=== PATIENT | male | born 1980 | race Caucasian/White ===

== ENCOUNTER → 2019-08-23 | Outpatient (CLI) | payer BC ==
[~2019-08-23] MED LIST: CYCL10TA9 PO; MULTI VITAMINS PO; NAPR-689 PO; PRED20TA PO
--- NOTE | 2019-08-23 09:34 | Diagnostic Imaging Report ---
INDICATION: Lower right anterior rib pain. TIME OF EXAM: 9:23 AM FINDINGS: Multiple views of right ribs were obtained. No displaced rib fracture is seen. No parenchymal contusion, effusion or pneumothorax is seen. IMPRESSION: No acute abnormality is detected. Dictated by: Dictated on workstation # [id number]
== END ==
LOC: RAD 09:06
PROVIDERS: ATTEND Nurse Practitioner Family
DX: R07.81 Pleurodynia (principal)
CPT/HCPCS: 71100

== ENCOUNTER 2020-08-04 10:41 | Outpatient (RCR) | payer BC ==
[~2020-08-04] VITALS: Ht 182 cm; Wt 65.9 kg
[~2020-08-04 10:41] MED LIST changes: +MULT-1136 PO
== END 2020-08-04 10:42 | disposition home or self-care (01) ==
LOC: PREOP 10:41
PROVIDERS: ATTEND Internal Medicine
DX: Z01.818 Encounter for other preprocedural examination (principal)

== ENCOUNTER 2020-08-08 07:39 | Day surgery (SDC) | payer BC ==
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
[~2020-08-08] VITALS: Ht 182 cm; Wt 66.0 kg
[2020-08-08] MEDS ORDERED: LACTATED RINGERS 1,000 ML IV ONE (07:41)
--- NOTE | 2020-08-08 07:48 | Pre-Op Note & Conscious Sedat ---
Pre-Operative Progress Note H&P Reviewed The H&P was reviewed, patient examined and no changes noted. Date H&P Reviewed: Aug 08, 2020 Time H&P Reviewed: 07:47 Conscious Sedation Pre-Proced ASA Score 2 For ASA 3 and 4: Consider anesthesia and medical clearance. Also, for patients with a history of failed moderate sedation consider anesthesia. Airway Lungs Heart ASA score ASA 1: a normal healthy patient ASA 2: a patient with a mild systemic disease (mid diabetes, controlled hypertension, obesity ASA 3: a patient with a severe systemic disease that limits activity (angina, COPD, prior Myocardial infarction) ASA 4: a patient with an incapacitating disease that is a constant threat to life (CHF, renal failure) ASA 5: a moribund patient not expected to survive 24 hrs. (ruptured aneurysm) ASA 6: a declared brain- patient whose organs are being harvested. For emergent operations, add the letter E after the classification Mallampati Classification Grade 2 Sedation Plan Analgesia, Amnesia, Plan communicated to team members, Discussed options with patient/fam, Discussed risks with patient/fam The patient is an appropriate candidate to undergo the planned procedure, sedation, and anesthesia. The patient immediately re-assessed prior to indication. XIN BRUNNER MD Aug 08, 2020 07:48
[2020-08-08 07:50] VITALS: BP 117/83
[2020-08-08] MEDS ORDERED: LACTATED RINGERS 1,000 ML IV STA (07:57)
[2020-08-08] MEDS ORDERED: LIDOCAINE JELLY 2% 6 ML SYRINGE MM PRN (08:00)
[2020-08-08] MEDS ORDERED: proPOfol 200 MG/20 ML (DIPRIVAN) VIAL IV ONE (09:19)
[2020-08-08] MEDS ORDERED: MIDAZOLAM 2 MG/2 ML (VERSED) VIAL ONE (09:19)
[2020-08-08 10:00] VITALS: BP 100/55
[2020-08-08 10:05] VITALS: BP_SYST 106; BP_SYST 107; BP_DIAS 60; BP_DIAS 61
[2020-08-08 10:30] VITALS: BP 111/70
[2020-08-08 10:37] VITALS: BP 111/70
--- NOTE | 2020-08-08 10:37 | Anesthesia-General Post-Op ---
MAC Patient Condition Mental Status/LOC: Same as Preop Cardiovascular: Satisfactory Nausea/Vomiting: Absent Respiratory: Satisfactory Pain: Controlled Complications: Absent Post Op Complications Complications None Follow Up Care/Instructions Patient Instructions None needed. Anesthesiology Discharge Order Discharge Order Patient is doing well, no complaints, stable vital signs, no apparent adverse anesthesia problems. MONAE LAUGHLIN DO Aug 08, 2020 10:37
--- NOTE | 2020-08-08 15:04 | OPERATIVE REPORT ---
DATE OF SERVICE: COLONOSCOPY SUMMARY INDICATION FOR THE PROCEDURE: Screening colonoscopy, family history of colon cancer. DESCRIPTION OF PROCEDURE: The patient was placed in the left lateral decubitus position. Prior to undergoing colonoscopy, digital rectal evaluation was performed. Anal sphincter tone was normal and the perianal reflexes intact. Prostate is normal size, anodular, nontender to digital inspection. No abnormalities were noted on digital inspection of anal canal or distal rectal vault. The colonoscope was inserted into the rectum and under direct visualization advanced to cecum. The cecum was identified by identification of the ileocecal valve and cecal strap. Photographic documentation was obtained. Careful inspection was made as colonoscope withdrawn. Quality of prep was fair. The patient did have a vagal response to initial failed IV attempts. He had a presyncopal event. Heart rate dropped in 40s with a systolic pressure of 80/30 supine. He recovered quickly and we were able to get an IV with no difficulty during the colonoscopy that followed. The patient was discharged with stable vital signs voicing no complaints. FINDINGS: The rectum, sigmoid colon, descending colon, transverse colon, ascending colon and cecum were unremarkable with no evidence for diverticular disease, neoplasia or other abnormality. ASSESSMENT: Normal colonoscopy to the cecum. Considering family history, we would advise consideration for repeat screening colonoscopy in 5 years. I thank you for the referral of this pleasant gentleman. Job ID: [id number] DocumentID: [id number] Dictated Date: 08/08/2020 10:20:31 Safe Deposit Clerk Date: 08/08/2020 15:03:00 Dictated By: XIN BRUNNER MD MTDD
== END 2020-08-08 10:39 | disposition home or self-care (01) ==
LOC: ENDO 07:39
PROVIDERS: ATTEND Internal Medicine
DX: Z12.11 Encounter for screening for malignant neoplasm of colon (principal); Z80.0 Family history of malignant neoplasm of digestive organs; Z88.8 Allergy status to other drugs, medicaments and biological substances; Z80.3 Family history of malignant neoplasm of breast; Z80.42 Family history of malignant neoplasm of prostate; Z80.51 Family history of malignant neoplasm of kidney

== ENCOUNTER 2022-08-19 17:41 | Emergency (ER) | payer BC ==
[~2022-08-19] VITALS: Ht 182.8 cm; Wt 70.3 kg
[2022-08-19 17:57] LABS: BASOPHILS # (AUTO) 0.1 10^3/uL (0.0-0.1); BASOPHILS % (AUTO) 1 % (0-10); EOSINOPHILS # (AUTO) 0.2 10^3/uL (0.0-0.3); EOSINOPHILS % (AUTO) 2 % (0-10); HEMATOCRIT 43 % (40-54); HEMOGLOBIN 14.8 g/dL (13.3-17.7); LYMPHOCYTES # (AUTO) 2.9 10^3/uL (1.0-4.0); LYMPHOCYTES % (AUTO) 36 % (12-44); MEAN CORPUSCULAR HEMOGLOBIN 33 pg (25-34); MEAN CORPUSCULAR HGB CONC 34 g/dL (32-36); MEAN CORPUSCULAR VOLUME 95 fL (80-99); MEAN PLATELET VOLUME 9.7 fL (9.0-12.2); MONOCYTES # (AUTO) 0.6 10^3/uL (0.0-1.0); MONOCYTES % (AUTO) 8 % (0-12); NEUTROPHILS # (AUTO) 4.1 10^3/uL (1.8-7.8); NEUTROPHILS % (AUTO) 53 % (42-75); PLATELET COUNT 209 10^3/uL (130-400); WHITE BLOOD COUNT 7.8 10^3/uL (4.3-11.0)
[2022-08-19] MEDS ORDERED: ASPIRIN 81 MG CHEW (CHILDREN'S ASA) PO ONE (18:00)
[2022-08-19 18:07] LABS: ALBUMIN 4.8 GM/DL (3.2-4.5); CHLORIDE 103 MMOL/L (98-107); POTASSIUM 4.1 MMOL/L (3.6-5.0); SODIUM 139 MMOL/L (135-145)
[2022-08-19 18:08] LABS: CALCIUM 9.9 MG/DL (8.5-10.1)
[2022-08-19 18:09] LABS: GLUCOSE 102 MG/DL (70-105); TOTAL PROTEIN 8.3 GM/DL (6.4-8.2)
[2022-08-19 18:10] LABS: CARBON DIOXIDE 27 MMOL/L (21-32)
[2022-08-19 18:11] LABS: BILIRUBIN,TOTAL 0.4 MG/DL (0.1-1.0)
[2022-08-19 18:13] LABS: ALKALINE PHOSPHATASE 57 U/L (40-136); CREATININE SERUM 0.85 MG/DL (0.60-1.30); GFR ESTIMATED 113
[2022-08-19 18:14] LABS: BUN/CREATININE RATIO 13
[2022-08-19 18:15] LABS: MAGNESIUM 2.2 MG/DL (1.6-2.4)
[2022-08-19 18:16] LABS: ALANINE AMINOTRANSFERASE 50 U/L (0-55)
[2022-08-19 18:19] LABS: INR 0.9 (0.8-1.4); PROTHROMBIN TIME PATIENT 12.3 SEC (12.2-14.7)
--- NOTE | 2022-08-19 18:28 | Diagnostic Imaging Report ---
EXAMINATION: Chest 1 view HISTORY: Chest pain COMPARISON: None available. FINDINGS: Heart size and pulmonary vasculature are normal. The lungs are clear without consolidation, pleural effusion, or pneumothorax. The osseous structures are intact. IMPRESSION: 1. No acute radiographic abnormality in the chest. Dictated by: Dictated on workstation # [id number]
[2022-08-19] MEDS ORDERED: LIDOCAINE 2% VISCOUS 15 ML UDC PO ONE (18:45)
[2022-08-19] MEDS ORDERED: ANTACID SUSP 30 ML UDC (MYLANTA) PO ONE (18:45)
[2022-08-19] MEDS ORDERED: SUCRALFATE 1 GM (CARAFATE) TAB PO ONE (18:45)
--- NOTE | 2022-08-19 18:45 | ED Chest Pain ---
General Chief Complaint: Chest Pain Stated Complaint: CHEST PRESSURE Nursing Triage Note: PT AMB TO RM 8 WITH CC OF CHEST PRESSURE SINCE LAST PM. PT SEEN AT [facility] EARLIER TODAY FOR SAME CONCERN AND SENT HERE. PT STATES HAS HAD THIS PRESSURE ON AND OFF FOR AWHILE NOW. PT DENIES SOA Source: patient Exam Limitations: no limitations History of Present Illness Date Seen by Provider: Aug 19, 2022 Time Seen by Provider: 18:18 Initial Comments Patient is a 42-year-old male who presents to the emergency department today with a chief complaint of low midsternal chest pressure he describes started yesterday. He states its been intermittent for the past 24 hours or so. He went to [facility] and was sent here for evaluation. He has not taken anything for the discomfort. Patient cannot describe any provocative factors although he does state that it seems to get a little bit more uncomfortable when he gets up and moves around. He is not short of breath. He has not had any nausea or diaphoresis. The pain does not radiate. He has never had anything like this before. He is a non-smoker. No history of any hypertension, hypercholesterolemia or diabetes. No recent illnesses such as fevers, chills, cough or congestion. He is fully vaccinated for COVID and has had his flu and pneumonia vaccinations. No family history of first-degree relatives with coronary artery disease. He is not on any daily medications. Currently rates his discomfort at about a "3", at its worst a "4". All other review of systems reviewed and negative except as stated. Timing/Duration: 1-2 days Severity/Quality: mild, pressure Location: central (low almost epigastric) Radiation: no radiation Activities at Onset: none Prior CP/Workup: no prior chest pain, no prior cardiac workup ASA po SENIOR RECEPTIONIST: No NTG SL SENIOR RECEPTIONIST: No Associated Symptoms: denies symptoms Allergies and Home Medications Allergies Coded Allergies: prochlorperazine (Unverified Adverse Reaction, Intermediate, MUSCLE TENSION, 08/04/20) Patient Home Medication List Home Medication List Reviewed: Yes Multivitamin (Multivitamin) 1 Each Tablet, 1 EACH PO DAILY, (Reported) Entered as Reported by: NAVIN FUENTES on 08/04/20 1038 Review of Systems Review of Systems Constitutional: see HPI EENTM: No Symptoms Reported Respiratory: No Symptoms Reported Cardiovascular: Chest Pain Gastrointestinal: No Symptoms Reported Genitourinary: No Symptoms Reported Musculoskeletal: no symptoms reported Skin: no symptoms reported All Other Systems Reviewed Negative Unless Noted: Yes Past Vsmbpvd-Qblzpi-Jyvgkz Hx Patient Social History Tobacco Use?: No Substance use?: No Alcohol Use?: No Pt feels they are or have been: No Seasonal Allergies Seasonal Allergies: No Past Medical History Surgery/Hospitalization HX: SPLENECTOMY Surgeries: Yes (bilateral hip, spleenectomy, KNEE ) Orthopedic Respiratory: No Cardiac: No Neurological: No Reproductive Disorders: No Sexually Transmitted Disease: No HIV/AIDS: No Genitourinary: No Gastrointestinal: No Musculoskeletal: No Endocrine: No HEENT: No (GLASSES) Loss of Vision: Denies Hearing Impairment: Denies Cancer: No Psychosocial: No Integumentary: No Blood Disorders: No Adverse Reaction/Blood Tranf: No (HAS HAD BLOOD WITH REACTION) Family Medical History Colon cancer No Pertinent Family Hx Physical Exam Vital Signs Vital Signs - First Documented 08/19/22 17:45 Temp 36.6 Pulse 81 Resp 17 B/P (MAP) 125/70 (88) Pulse Ox 100 O2 Delivery Room Air Capillary Refill : Less Than 3 Seconds Height, Weight, BMI Height: 6'1" Weight: 150lbs. oz. 68.360414hm; 21.00 BMI Method:Stated General Appearance: No Apparent Distress, WD/WN (appears fit) HEENT: PERRL/EOMI Neck: Normal Inspection, Supple Respiratory: Lungs Clear, Normal Breath Sounds, No Accessory Muscle Use, No Respiratory Distress Cardiovascular: Regular Rate, Rhythm Gastrointestinal: Non Tender, Soft Extremity: Normal Capillary Refill, Normal Inspection, Normal Range of Motion, Non Tender, No Calf Tenderness Neurologic/Psychiatric: Alert, Oriented x3, No Motor/Sensory Deficits, Normal Mood/Affect, lead radiologic technologist II-XII Norm as Tested Skin: Normal Color, Warm/Dry Progress/Results/Core Measures Results/Orders Lab Results Laboratory Tests Test 08/19/22 17:50 Range/Units White Blood Count 7.8 4.3-11.0 10^3/uL Red Blood Count 4.54 4.30-5.52 10^6/uL Hemoglobin 14.8 13.3-17.7 g/dL Hematocrit 43 40-54 % Mean Corpuscular Volume 95 80-99 fL Mean Corpuscular Hemoglobin 33 25-34 pg Mean Corpuscular Hemoglobin Concent 34 32-36 g/dL Red Cell Distribution Width 12.2 10.0-14.5 % Platelet Count 209 130-400 10^3/uL Mean Platelet Volume 9.7 9.0-12.2 fL Immature Granulocyte % (Auto) 0 % Neutrophils (%) (Auto) 53 42-75 % Lymphocytes (%) (Auto) 36 12-44 % Monocytes (%) (Auto) 8 0-12 % Eosinophils (%) (Auto) 2 0-10 % Basophils (%) (Auto) 1 0-10 % Neutrophils # (Auto) 4.1 1.8-7.8 10^3/uL Lymphocytes # (Auto) 2.9 1.0-4.0 10^3/uL Monocytes # (Auto) 0.6 0.0-1.0 10^3/uL Eosinophils # (Auto) 0.2 0.0-0.3 10^3/uL Basophils # (Auto) 0.1 0.0-0.1 10^3/uL Immature Granulocyte # (Auto) 0.0 0.0-0.1 10^3/uL Prothrombin Time 12.3 12.2-14.7 SEC INR Comment 0.9 0.8-1.4 Activated Partial Thromboplast Time 29 24-35 SEC Sodium Level 139 135-145 MMOL/L Potassium Level 4.1 3.6-5.0 MMOL/L Chloride Level 103 98-107 MMOL/L Carbon Dioxide Level 27 21-32 MMOL/L Anion Gap 9 5-14 MMOL/L Blood Urea Nitrogen 11 7-18 MG/DL Creatinine 0.85 0.60-1.30 MG/DL Estimat Glomerular Filtration Rate 113 BUN/Creatinine Ratio 13 Glucose Level 102 70-105 MG/DL Calcium Level 9.9 8.5-10.1 MG/DL Corrected Calcium 8.5-10.1 MG/DL Magnesium Level 2.2 1.6-2.4 MG/DL Total Bilirubin 0.4 0.1-1.0 MG/DL Aspartate Amino Transf (AST/SGOT) 37 H 5-34 U/L Alanine Aminotransferase (ALT/SGPT) 50 0-55 U/L Alkaline Phosphatase 57 40-136 U/L Myoglobin 37.5 10.0-92.0 NG/ML Troponin I < 0.028 <0.028 NG/ML Total Protein 8.3 H 6.4-8.2 GM/DL Albumin 4.8 H 3.2-4.5 GM/DL My Orders Orders - GEN VARGAS MD Antacid Suspension (Mylanta Suspension (08/19/22 18:45) Sucralfate Tablet (Carafate Tablet) (08/19/22 18:45) Lidocaine 2% Viscous 15 Ml (Xylocaine Vi (08/19/22 18:45) Medications Given in ED Current Medications Medications Dose Ordered Sig/Aditi Route Start Time Stop Time Status Last Admin Dose Admin Al Hydrox/Mg Hydrox/Simethicone 30 ml ONCE ONCE PO 08/19/22 18:45 08/19/22 18:46 DC 08/19/22 19:16 30 ML Aspirin 324 mg ONCE ONCE PO 08/19/22 18:00 08/19/22 18:01 DC 08/19/22 17:55 324 MG Lidocaine HCl 5 ml ONCE ONCE PO 08/19/22 18:45 08/19/22 18:46 DC 08/19/22 19:16 5 ML Sucralfate 1 gm ONCE ONCE PO 08/19/22 18:45 08/19/22 18:46 DC 08/19/22 19:16 1 GM Vital Signs/I&O 08/19/22 17:45 Temp 36.6 Pulse 81 Resp 17 B/P (MAP) 125/70 (88) Pulse Ox 100 O2 Delivery Room Air Blood Pressure Mean: 88 Progress Progress Note : Time: 19:33 Progress Note Patient seen and evaluated, 42-year-old with chest "pressure". Evaluation today includes physical exam, cardiac "work-up". I have reviewed his labs, EKG and imaging. All of these are reassuring. He would be, on the heart score, low risk as he has really no risk factors for coronary artery disease. The story is not usual for ACS. He was treated with aspirin as well as a GI cocktail. He states he feels like the GI cocktail has improved his symptoms. I believe that due to dietary changes over the holidays this is more a GERD issue than cardiac issue. We have talked about things to look for should his symptomatology change . Return precautions. 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 He is comfortable with this plan of care. All questions are sought and answered Initial ECG Impression Date: Aug 19, 2022 Initial ECG Impression Time: 18:18 Initial ECG Rate: 81 Initial ECG Rhythm: Normal Sinus Initial ECG Intervals: Normal Initial ECG Impression: Normal Comment PVC noted; no other ectopy; no ST elevation or depression - Diagnostic Imaging Diagonstic Imaging: Xray Plain Films/CT/US/NM/MRI: chest Comments [facility] [place] NAME: [facility] REC#: [id number] PT STATUS: REG ER : 1980 PHYSICIAN: REBECCA ALDANA ADMIT DATE: 08/19/22/ER Signed Date of Exam:08/19/22 CHEST 1 VIEW, AP/PA ONLY EXAMINATION: Chest 1 view HISTORY: Chest pain COMPARISON: None available. FINDINGS: Heart size and pulmonary vasculature are normal. The lungs are clear without consolidation, pleural effusion, or pneumothorax. The osseous structures are intact. IMPRESSION: 1. No acute radiographic abnormality in the chest. Dictated by: Dictated on workstation # [id number] Dict: 08/19/221826 Trans: 08/19/221839 [facility] [id number] Interpreted by: TREVER RICHARD DO Electronically signed by: TREVER RICHARD DO 08/19/221839 Departure Impression Primary Impression: Chest pain Qualified Codes: R07.9 - Chest pain, unspecified Additional Impression: GERD (gastroesophageal reflux disease) Qualified Codes: K21.9 - Gastro-esophageal reflux disease without esophagitis Disposition: HOME, SELF-CARE Condition: Improved Departure-Patient Inst. Decision time for Depature: 19:37 Referrals: FROILAN VIDES DO (PCP) Primary Care Physician NO,LOCAL PHYSICIAN (Family) Primary Care Physician Patient Instructions: Chest Pain That Is Not Caused by the Heart (DC), Acid Reflux and Gastroesophageal Reflux Disease in Adults Add. Discharge Instructions: Labs, chest x-ray and EKG today are very reassuring that you have no concerning findings for a heart attack. I suspect this is more related to gastroesophageal reflux disease/acid reflux. You would benefit I believe from starting [id number] generic Prilosec. Take 20 mg daily for the next 2 weeks. Watch your intake of fatty, heavy foods and sugary foods. If you have any return of symptoms of chest pressure/pain especially associated with nausea vomiting, shortness of breath or sweating please come back to the emergency room for reevaluation. Please follow-up with your primary care doctor Copy Copies To 1: FROILAN VIDES KATHRYN M MD Aug 19, 2022 18:45
[2022-08-19 19:50] VITALS: BP 108/68
== END 2022-08-19 19:53 | disposition home or self-care (01) ==
LOC: EDUNIT# 17:41 → ER 17:43
DX: K21.9 Gastro-esophageal reflux disease without esophagitis (principal)
CPT/HCPCS: 36415; 71045; 80053; 83735; 83874; 84484; 85025; 85610; 85730; 93041

== ENCOUNTER 2023-03-17 15:45 | Emergency (ER) | payer BC ==
[~2023-03-17] VITALS: Ht 182.8 cm; Wt 66.2 kg
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
[2023-03-17 16:20] LABS: BASOPHILS % (AUTO) 0 % (0-10); EOSINOPHILS # (AUTO) 0.1 10^3/uL (0.0-0.3); EOSINOPHILS % (AUTO) 1 % (0-10); HEMATOCRIT 41 % (40-54); HEMOGLOBIN 14.5 g/dL (13.3-17.7); LYMPHOCYTES # (AUTO) 4.4 10^3/uL (1.0-4.0); LYMPHOCYTES % (AUTO) 41 % (12-44); MEAN CORPUSCULAR HEMOGLOBIN 33 pg (25-34); MEAN CORPUSCULAR HGB CONC 36 g/dL (32-36); MEAN CORPUSCULAR VOLUME 93 fL (80-99); MEAN PLATELET VOLUME 10.4 fL (9.0-12.2); MONOCYTES # (AUTO) 0.8 10^3/uL (0.0-1.0); MONOCYTES % (AUTO) 7 % (0-12); NEUTROPHILS # (AUTO) 5.5 10^3/uL (1.8-7.8); NEUTROPHILS % (AUTO) 51 % (42-75); PLATELET COUNT 254 10^3/uL (130-400); WHITE BLOOD COUNT 10.8 10^3/uL (4.3-11.0)
[2023-03-17 16:21] LABS: CALCIUM 10.2 MG/DL (8.5-10.1)
[2023-03-17 16:26] LABS: CREATININE SERUM 1.06 MG/DL (0.60-1.30)
[2023-03-17] MEDS ORDERED: KCL 20 MEQ TAB (K-DUR) PO ONE (17:00)
[2023-03-17 17:51] VITALS: BP 130/77
== END 2023-03-17 17:51 | disposition home or self-care (01) ==
LOC: EDUNIT# 15:45 → ER 15:48
DX: E87.6 Hypokalemia (principal); I45.10 Unspecified right bundle-branch block; R10.12 Left upper quadrant pain
CPT/HCPCS: 36415; 80048; 85025; 93005

== ENCOUNTER 2023-05-26 18:58 | Emergency (ER) | payer BC ==
[~2023-05-26] VITALS: Ht 182.8 cm; Wt 66.2 kg
[2023-05-26] MEDS ORDERED: ASPIRIN 81 MG CHEWABLE TABLET PO ONE (19:15)
[2023-05-26] MEDS ORDERED: NITROGLYCERIN 0.4 MG SL TABLETS BTL 25'S SL PRN (19:15)
[2023-05-26 19:17] LABS: BASOPHILS % (AUTO) 0 % (0-10); EOSINOPHILS # (AUTO) 0.4 10^3/uL (0.0-0.3); EOSINOPHILS % (AUTO) 5 % (0-10); HEMATOCRIT 41 % (40-54); LYMPHOCYTES % (AUTO) 47 % (12-44); MEAN CORPUSCULAR HEMOGLOBIN 33 pg (25-34); MEAN CORPUSCULAR HGB CONC 34 g/dL (32-36); MEAN CORPUSCULAR VOLUME 96 fL (80-99); MEAN PLATELET VOLUME 9.9 fL (9.0-12.2); MONOCYTES # (AUTO) 0.6 10^3/uL (0.0-1.0); MONOCYTES % (AUTO) 7 % (0-12); NEUTROPHILS # (AUTO) 3.5 10^3/uL (1.8-7.8); NEUTROPHILS % (AUTO) 40 % (42-75); PLATELET COUNT 215 10^3/uL (130-400); WHITE BLOOD COUNT 8.5 10^3/uL (4.3-11.0)
--- NOTE | 2023-05-26 19:22 | Diagnostic Imaging Report ---
CHEST 1 VIEW, AP/PA ONLY Indication: Chest pain. Comparison: 03/13/2023 Findings: No focal airspace disease in the visualized lungs. No pleural effusion or pneumothorax. Normal cardiomediastinal silhouette. Impression: 1. No acute cardiopulmonary process by portable radiography. Dictated by: Dictated on workstation # [id number]
[2023-05-26 19:24] LABS: ALBUMIN 4.7 GM/DL (3.2-4.5)
[2023-05-26 19:25] LABS: CALCIUM 9.6 MG/DL (8.5-10.1)
[2023-05-26 19:26] LABS: AMYLASE 75 U/L (25-125)
[2023-05-26 19:27] LABS: GLUCOSE 108 MG/DL (70-105)
[2023-05-26 19:28] LABS: BILIRUBIN,TOTAL 0.4 MG/DL (0.1-1.0); CARBON DIOXIDE 26 MMOL/L (21-32)
[2023-05-26 19:29] LABS: INR 0.9 (0.8-1.4); PROTHROMBIN TIME PATIENT 12.8 SEC (12.2-14.7)
[2023-05-26 19:30] LABS: ALKALINE PHOSPHATASE 59 U/L (40-136); CREATININE SERUM 0.96 MG/DL (0.60-1.30); GFR ESTIMATED 102
[2023-05-26 19:31] LABS: BUN/CREATININE RATIO 13
[2023-05-26 19:32] LABS: FIBRIN DEGRADATION PRODUCTS 0.33 UG/ML (0.00-0.49)
[2023-05-26 19:33] LABS: ALANINE AMINOTRANSFERASE 16 U/L (0-55)
[2023-05-26 19:34] LABS: MAGNESIUM 2.2 MG/DL (1.6-2.4)
[2023-05-26 19:35] LABS: CREATINE KINASE 107 U/L (30-200); LIPASE 35 U/L (8-78)
[2023-05-26 19:41] LABS: CREATINE KINASE MB 1.7 NG/ML (<6.6)
[2023-05-26 19:45] LABS: SMEAR SCAN COMMENT YES
[2023-05-26 19:48] LABS: CHLORIDE 104 MMOL/L (98-107); POTASSIUM 3.5 MMOL/L (3.6-5.0); SODIUM 141 MMOL/L (135-145)
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
[2023-05-26] MEDS ORDERED: HOLD METFORMIN - RECEIVED CONTRAST 20 ML VIAL IV SCH (20:00)
[2023-05-26] MEDS ORDERED: IOHEXOL 350 MG/ML 100 ML (OMNIPAQUE 350) VIAL IV ONE (20:00)
[2023-05-26] MEDS ORDERED: NS 100 ML (IVPB) BAG IV ONE (20:00)
--- NOTE | 2023-05-26 20:37 | Diagnostic Imaging Report ---
INDICATION: Chest pain. Gastroesophageal reflux disease CTA chest, abdomen and pelvis Thin axial sections through the chest, abdomen and pelvis are obtained following intravenous contrast bolus. Multiplanar MIP images were reconstructed and reviewed. All CT scans use one or more of the following dose optimizing techniques: automated exposure control, MA and/or KvP adjustment based on patient size and exam type or iterative reconstruction. COMPARISON: None available. FINDINGS: The pulmonary arteries are not opacified on this examination and therefore cannot be assessed for pulmonary embolism. The aorta is well-opacified and there is no thoracic aortic aneurysm, dissection or penetrating ulcer. No pleural effusion or pneumothorax. There is no pneumonia or edema. No mediastinal or hilar lymphadenopathy. Heart is normal in size without pericardial effusion. No worrisome osseous lesions in the chest. No free intraperitoneal air or loculated fluid collection. The liver, gallbladder, spleen and pancreas are all normal. Kidneys are unremarkable. Urinary bladder is normally filled. Prostate is not enlarged. The stomach is filled with fluid and food debris. No dilated loops of bowel to indicate bowel obstruction. No pericolonic inflammatory change. Appendix is not seen but there are no secondary features of acute appendicitis. A moderate amount of colonic stool is noted. No abdominal or pelvic lymphadenopathy. The abdominal aorta is normal in caliber without dissection. No worrisome focal osseous lesion. Partially imaged intramedullary nails in the proximal femurs on both sides. IMPRESSION: 1. No aortic aneurysm or acute aortic syndrome. 2. Pulmonary arteries are not opacified on this examination and cannot be assessed for emboli. 3. No other acute abnormality in the chest, abdomen or pelvis. 4. Moderate burden of colonic stool. Dictated by: Dictated on workstation # [id number]
[2023-05-26] MEDS ORDERED: LIDOCAINE 2% VISCOUS 15 ML UDC PO ONE (21:00)
[2023-05-26] MEDS ORDERED: PANTOPRAZOLE INJECTION 40 MG VIAL IV ONE (21:00)
[2023-05-26] MEDS ORDERED: ANTACID SUSPENSION 30 ML UDC PO ONE (21:00)
[2023-05-26] MEDS ORDERED: SUCR1TAB36 PO (22:04)
[2023-05-26 22:35] VITALS: BP 104/78
== END 2023-05-26 22:35 | disposition home or self-care (01) ==
LOC: EDUNIT# 18:58 → ER 19:01
DX: R07.89 Other chest pain (principal); Z87.19 Personal history of other diseases of the digestive system
CPT/HCPCS: 36415; 71045; 71275; 74177; 80053; 82150; 82550; 82553; 83690; 83735; 83874; 83880; 84484; 85025; 85379; 85610; 85730; 93005; 93041

== ENCOUNTER 2023-07-13 05:49 | Outpatient (CLI) | payer BC ==
[~2023-07-13] VITALS: Ht 182.9 cm; Wt 67.1 kg
[~2023-07-13 05:49] MED LIST changes: +SUCR1TAB36 PO
[2023-07-13] MEDS ORDERED: OMEP20CA18 PO (11:34)
[2023-07-13] MEDS ORDERED: OMEG100032 PO (11:34)
== END 2023-07-13 11:37 | disposition home or self-care (01) ==
LOC: PREOP 05:49
PROVIDERS: ATTEND Internal Medicine
DX: Z01.818 Encounter for other preprocedural examination (principal)

== ENCOUNTER 2023-07-22 08:57 | Day surgery (SDC) | payer BC ==
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
[~2023-07-22] VITALS: Ht 182.9 cm; Wt 67.1 kg
[~2023-07-22 08:57] MED LIST changes: +LACTATED RINGERS 1,000 ML 1,000 ML IV STA; +OMEG100032 PO; +OMEP20CA18 PO
[2023-07-22] MEDS ORDERED: HURRICAINE EXT TUBE (BENZOCAINE) XX PRN (09:00)
--- NOTE | 2023-07-22 09:37 | Pre-Op Note & Conscious Sedat ---
Pre-Operative Progress Note Date H&P Reviewed: Jul 22, 2023 Time H&P Reviewed: 09:37 History & Physical: H&P Reviewed, Patient Examed, No changes noted Pre-Op Diagnosis: dysphagia Moderate Sedation PreProcedure ASA Score 2 Airway Lungs Heart ASA score ASA 1: a normal healthy patient ASA 2: a patient with a mild systemic disease (mid diabetes, controlled hypertension, obesity ASA 3: a patient with a severe systemic disease that limits activity (angina, COPD, prior Myocardial infarction) ASA 4: a patient with an incapacitating disease that is a constant threat to life (CHF, renal failure) ASA 5: a moribund patient not expected to survive 24 hrs. (ruptured aneurysm) ASA 6: a declared brain- patient whose organs are being harvested. For emergent operations, add the letter E after the classification Mallampati Classification Grade 2 Sedation Plan Analgesia, Amnesia, Plan communicated to team members, Discussed options with patient/fam, Discussed risks with patient/fam The patient is an appropriate candidate to undergo the planned procedure, sedation, and anesthesia. The patient immediately re-assessed prior to indication. XIN BRUNNER MD Jul 22, 2023 09:37
[2023-07-22 09:56] VITALS: BP 114/72
[2023-07-22] MEDS ORDERED: MIDAZOLAM INJ 2 MG/2 ML VIAL ONE (10:09)
[2023-07-22 10:30] VITALS: BP 95/51
--- NOTE | 2023-07-22 10:31 | Anesthesia-General Post-Op ---
MAC Patient Condition Mental Status/LOC: Same as Preop Cardiovascular: Satisfactory Nausea/Vomiting: Absent Respiratory: Satisfactory Pain: Controlled Complications: Absent Post Op Complications Complications None Follow Up Care/Instructions Patient Instructions None needed. Anesthesiology Discharge Order Discharge Order Patient is doing well, no complaints, stable vital signs, no apparent adverse anesthesia problems. No complications reported per nursing. SABRINA MCARTHUR CRNA Jul 22, 2023 10:31
--- NOTE | 2023-07-22 10:34 | Progress Note-Post Operative ---
Post-Procedure Note Physician (s)/[employer] (s) Physician XIN BRUNNER MD Pre-Procedure Diagnosis Pre-Procedure Diagnosis: dysphagia Post-Procedure Diagnosis Post-operative diagnosis: The patient was placed in the left lateral decubitus position. The endoscope was inserted into the oral cavity and under direct visualization the esophagus is then abated. The endoscope was passed down the esophagus through the stomach into the second portion of the duodenum. A careful inspection was made as the endoscope was withdrawn. Findings: The posterior pharynx epiglottis arytenoid aperture and true and false vocal folds were unremarkable gross inspection. The proximal and mid and distal esophagus were unremarkable as well the Z-line was distinct there is no evidence for Toussaint's change or esophagitis. There was patency at the level of the lower esophageal sphincter through majority of the procedure suggesting laxity of the lower esophageal sphincter. The cardia fundus antrum pylorus pyloric channel duodenal bulb saved for the fact that it is small in size, and second portion of the duodenum were unremarkable to visual inspection. Biopsies were obtained from the GE junction as well as midesophagus to evaluate for underlying eosinophilic esophagitis considering history of dysphagia. A/P 1. Findings suggesting some laxity of the lower esophageal sphincter but without evidence for erosive esophagitis or Toussaint's change and otherwise unremarkable evaluation. Biopsies were obtained from the GE junction as well as midesophagus to evaluate for underlying eosinophilic esophagitis considering history of dysphagia. Patient was reassured by today's findings he was advised to continue proton pump inhibitor therapy he has Carafate that he can take on a as needed basis as well. [facility] iXn Brnuner MD. CC: XIN Doll MD Jul 22, 2023 10:34
[2023-07-22 10:35] VITALS: BP 95/50
[2023-07-22 10:40] VITALS: BP 109/64
[2023-07-22 10:48] VITALS: BP 109/64
[2023-07-22 11:01] VITALS: BP 109/64
== END 2023-07-22 11:22 | disposition home or self-care (01) ==
LOC: ENDO 08:57
PROVIDERS: ATTEND Internal Medicine
DX: K21.00 Gastro-esophageal reflux disease with esophagitis, without bleeding (principal); K22.89 Other specified disease of esophagus